=== PATIENT | male | born 1995 | race Two or more races ===

== ENCOUNTER 2016-09-19 18:33 | Emergency (ER) | payer MEDICAID ==
[~2016-09-19] VITALS: Ht 172.7 cm; Wt 81.6 kg
[2016-09-19] MEDS ORDERED: KETOROLAC TROMETH 60MG/2ML VIAL IM ONE (20:15)
[2016-09-19 21:12] VITALS: BP 128/85
== END 2016-09-19 21:30 | disposition home or self-care (01) ==
LOC: ER 18:42
DX: S83.91XA Sprain of unspecified site of right knee, initial encounter (principal); X58.XXXA Exposure to other specified factors, initial encounter; Y93.67 Activity, basketball; Y99.8 Other external cause status; Y92.89 Other specified places as the place of occurrence of the external cause
CPT/HCPCS: 29505; 73700; 96372; 99284; J1885

== ENCOUNTER 2016-09-21 12:30 | Emergency (ER) | payer MEDICAID ==
[~2016-09-21] VITALS: Ht 172.7 cm; Wt 81.6 kg
[2016-09-21 13:24] VITALS: BP 123/63
== END 2016-09-21 15:36 | disposition home or self-care (01) ==
LOC: ER 12:37
DX: S83.511A Sprain of anterior cruciate ligament of right knee, initial encounter (principal); S83.206A Unspecified tear of unspecified meniscus, current injury, right knee, initial encounter; X58.XXXA Exposure to other specified factors, initial encounter; Y93.67 Activity, basketball; Y99.8 Other external cause status; Y92.89 Other specified places as the place of occurrence of the external cause
CPT/HCPCS: 73721

== ENCOUNTER 2022-09-22 16:15 | Emergency (ER) | payer MEDICAID ==
[~2022-09-22] VITALS: Ht 172.7 cm; Wt 85.1 kg
[2022-09-22 16:36] VITALS: BP 138/89
[2022-09-22] MEDS ORDERED: PROM1SOL4 PO (18:22)
[2022-09-22] MEDS ORDERED: AZITTAB PO (18:22)
[2022-09-22] MEDS ORDERED: MONT-8 PO (18:22)
[2022-09-22] MEDS ORDERED: ALBU108A5 IN (18:22)
== END 2022-09-22 19:01 | disposition home or self-care (01) ==
LOC: ER 16:15
DX: J06.9 Acute upper respiratory infection, unspecified (principal)